=== PATIENT | female | born 1995 | race Caucasian/White ===

== ENCOUNTER 2022-09-10 22:05 | Emergency (ER) | payer OTHER, SELFPAY ==
[2022-09-10 22:08] VITALS: BP 142/100; PULSE 105; RESP 18; TEMP 37; O2SAT 100; BMI 29.6
--- NOTE | 2022-09-10 22:30 | ED.RN ---
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 KIMBERLY REPORTS THAT PT DOES NOT REQUIRE DRUG SCREEN AT THIS TIME.
--- NOTE | 2022-09-10 23:17 | EDS_ITS ---
HPI History of Present Illness Chief Complaint: Laceration Narrative Narrative: 26-year-old female here with right middle finger laceration at work. Patient states she was using candy when she cut the palmar surface of her right third digit. Denies having a recent tetanus in last 10 years. States the pain is constant, severe without alleviating factors. Pain is worse with movement and palpation. PFSH PFS Medical History (Updated 09/10/22 @ 22:50 by Nathalia Moreno) Anxiety Depression Home Medications NK 09/10/22 [History Last Taken Unknown] Allergy/AdvReac Type Severity Reaction Status Date / Time amoxicillin Allergy Hives Verified 09/10/22 22:06 sulfamethoxazole Allergy Hives Verified 09/10/22 22:06 [From Bactrim] trimethoprim [From Bactrim] Allergy Hives Verified 09/10/22 22:06 Social History Smoking Status: Never smoker ROS ROS ED ROS Narrative Constitutional: Denies fever HEENT: Denies sore throat Neck: Denies neck pain Cardiovascular: Denies chest pain, syncope Respiratory: Denies shortness of breath GI: Denies nausea vomiting or abdominal pain : Denies changes in urinary habits Musculoskeletal: Denies muscle or joint pain Neurologic: Denies numbness weakness or loss of sensation Skin laceration noted to right middle finger EXAM Physical Exam Narrative Exam Narrative: Nursing triage notes reviewed, Vital signs reviewed Constitutional: please see mdm HENT: MMM Eyes: Pupils equal round and reactive to light, Extraocular muscles intact Neck: No stridor, no JVD, full neck ROM Lungs: Clear to auscultation, No wheezing or rales. No increased work of breathing, no conversational dyspnea, no accessory muscle use, no nasal flaring. No respiratory distress noted Extremities: Intact flexion and flexor digitorum superficialis, flexor digitorum profundus tendons Neuro: Intact 5/5 strength with ok sign (median), intact finger abduction (ulnar) intact wrist extension (radial n). Intact sensation in the radial, ulnar, and median nerve distributions. Skin: Approximate 1 cm vertical laceration noted to the palmar distal surface of the third digit. Bleeding controlled Const Vital Signs: 09/10/22 22:08 Temperature 98.6 F Temperature Source Temporal Pulse Rate 105 H Respiratory Rate 18 Blood Pressure 142/100 H Blood Pressure Mean 114 Pulse Ox 100 Oxygen Delivery Method Room Air MDM MDM MDM Narrative Medical decision making narrative: Chief Complaint: External records reviewed: MDM: The patient suffered lacerations to the palmar third digit of the right hand There is no evidence to suggest foreign bodies were history and exam. Visual and tactile exams are unremarkable. There was no evidence of neurovascular injury. Patient had a normal distal vascular exam, and had full normal motor and sensory exams. There was also no evidence of tendon injury, with normal distal full range of motion, flexion, extension, abduction, abduction. There is no evidence of local joint space involvement at this time patient was irrigated with copious sterile normal saline and primary. Performed please see procedure note. The patient was given signs and symptoms warnings for infection, such as increasing pain, redness, swelling, associated heat, pus or fever. Patient was given instructions for timely follow-up for removal. Patient agreed with the plan of care. Procedure: Laceration repair. The procedure was performed by myself. Indication: Wound repair Risks and benefits: risks, benefits and alternatives were discussed Consent: Consent was obtained. Wound Details: Linear laceration noted, approximately 1 cm in length, approximate 1 mm in depth, no foreign body no obvious tendinous involvement Anesthesia: 1% lidocaine without epi Wound prep: Patient was prepped and draped in the usual sterile fashion. Irrigation Solution: Saline Wound Preparation: Inserted 5 absorbable sutures for undermining, inserted 5 additional nonabsorbable sutures. The wound was explored through full range of motion to its base in a bloodless field. Patient tolerated the procedure well with no immediate complications Factors affecting care: None Social determinants of health: Poor health literacy History obtained from others: Shared decision making: I will have a discussion with the patient and or visitors regarding risk/benefits of further testing or admission. They will be made aware of of the risk/benefits inherent in this decision they will be given the opportunity to voice understanding. Consults: none Discharge Plan Triage Chief Complaint: Laceration ED Provider: Diego Marcelino Dx/Rx/DC Orders Instructions: ED Laceration Extremity Prescriptions: No Action NK Stand Alone Forms: ED Work / School Excuse Primary Care Provider: Kendell Muhammad Referrals: Kendell Muhammad MD [Primary Care Provider] - Activity Restrictions/Additional Instructions: Thank you for trusting us with your care today! Please take Tylenol (2 pills, 650 mg), ibuprofen (2 pills, 400 mg) every 6 hours as needed for pain and fever control. Look out for signs infection which include redness, increased welling, white- yellow discharge. The signs of LPs return to emergency department immediately. Please keep the area dry for 24 hours afterwards you may resume your normal hand hygiene. Please keep the wound covered with bandages and/or gauze. Please try to change these at least once per day. Please return to the emergency department if your symptoms change or worsen. Please follow with your primary care physician for further outpatient evaluation and management. Disposition Disposition: Home, Self Care
[2022-09-10] MEDS: Diphth,Pertuss(Acell),Tet Vac 0.5 ML Vial IM (23:31)
[2022-09-10] MEDS: Lidocaine 1% (20 ml mdv) 20 ML Vial 5 ML INFILT (23:32)
== END 2022-09-11 01:13 | disposition home or self-care (01) ==
PROVIDERS: Emergency Provider Emergency Medicine; Visit Provider Emergency Medicine
DX: S61.212A Laceration without foreign body of right middle finger without damage to nail, initial encounter (principal); W26.8XXA Contact with other sharp object(s), not elsewhere classified, initial encounter; Z23 Encounter for immunization
CPT/HCPCS: 12001; 90471; 90715; 99284